=== PATIENT | female | born 1995 | race African-American/Black ===

== ENCOUNTER 2018-09-18 17:06 | Emergency (ER) | payer OTHER, SELFPAY ==
[2018-09-18 17:13] VITALS: BP 127/81; PULSE 68; RESP 15; TEMP 36.3; O2SAT 100
[2018-09-18 19:33] LABS: RBC Urine 1-5/HPF (0-5/HPF)
[2018-09-18 19:34] LABS: Amorphous Sediment Urine 1+; Bacteria Urine Moderate (10-30); Culture Indicated Urine Specimen Cultured; Mucus Urine 1+ (Negative); Squamous Epithelial Cell Urine 1-5 /HPF; WBC Urine >100/HPF (0-5/HPF)
--- NOTE | 2018-09-18 20:48 | ED.FEMALEGU ---
HPI - Female Genitourinary <COMPA Rose - Last Filed: 09/18/18 20:59> General Chief complaint: Urogenital-Female Stated complaint: UTI Source: patient Mode of arrival: ambulatory Limitations: no limitations History of Present Illness HPI Narrative: Patient is a healthy 23-year-old female who presents with chief complaint of I have a UTI. she complains of dysuria urgency and frequency and back pain. She denies any nausea vomiting or fever. She does complain of diarrhea, but states that started when she started eating a lot of [employer] a few days ago. She states that she has a history of UTI and this feels exactly like the previous one. She denies opportunity for . She denies any vaginal etiology or abdominal pain. Related Data Previous Rx's Medication Instructions Recorded nitrofurantoin monohyd/m-cryst 100 mg PO BID #10 cap 09/18/18 Allergies Allergy/AdvReac Type Severity Reaction Status Date / Time No Known Drug Allergies Allergy Verified 09/18/18 17:13 Review of Systems <REGIS Rose - Last Filed: 09/18/18 20:59> Review of Systems GENERAL: Denies chills, fatigue, malaise, fever, sweats. HEENT: Denies sinus pain, ear pain, sore throat, difficulty swallowing, dizziness. RESPIRATORY: Denies dyspnea, cough, wheezing, hemoptysis, sputum. CARDIOVASCULAR: Denies chest pain, palpitations, orthopnea, edema, GASTROINTESTINAL: Denies nausea, vomiting, abdominal pain, diarrhea, constipation, melena. : See HPI MUSCULOSKELETAL: denies weakness, joint pain, or bony pain SKIN: Denies rash, skin lesions, or other NEUROLOGIC: Denies weakness, headache, numbness, change in speech, confusion, seizures, incoordination. PSYCHIATRIC: No concerning psychosocial issues. 12 point review of systems is negative except for those stated above Exam <REGIS Rose - Last Filed: 09/18/18 20:59> Narrative Exam Narrative: GENERAL: This is a well-nourished, well-developed patient, in no acute distress HEAD: Atraumatic. Normocephalic. No temporal or scalp tenderness. EYES: Pupils equal round and reactive. Extraocular motions intact. No scleral icterus. No injection or drainage. ENT: Nose without bleeding, purulent drainage or septal hematoma. Throat without erythema, tonsillar hypertrophy or exudate. Uvula midline. Airway patent. NECK: Trachea midline. No JVD or lymphadenopathy. Supple, nontender, no meningeal signs. CARDIOVASCULAR: Regular rate and rhythm without murmurs, gallops, or rubs. RESPIRATORY: Clear to auscultation. Breath sounds equal bilaterally. No wheezes, rales, or rhonchi. GASTROINTESTINAL: Abdomen soft, non-tender, nondistended. No hepato-splenomegaly, or palpable masses. No guarding. Active bowel sounds all 4 quadrants. EXTREMITIES: No clubbing, cyanosis, or edema. No joint tenderness, effusion, or edema noted. BACK: Nontender without deformity or crepitance. No flank tenderness. no CVA tenderness bilaterally. NEURO: AOx3. SKIN: No rash or erythema. Initial Vital Signs Initial Vital Signs: Vital Signs Temperature 97.4 F L 09/18/18 17:13 Pulse Rate 68 09/18/18 17:13 Respiratory Rate 15 09/18/18 17:13 Blood Pressure 127/81 09/18/18 17:13 Pulse Oximetry 100 09/18/18 17:13 <Kvng Pulido DO - Last Filed: 09/18/18 22:59> Initial Vital Signs Initial Vital Signs: Vital Signs Temperature 97.4 F L 09/18/18 17:13 Pulse Rate 68 09/18/18 17:13 Respiratory Rate 15 09/18/18 17:13 Blood Pressure 127/81 09/18/18 17:13 Pulse Oximetry 100 09/18/18 17:13 Course <COMPA Rose - Last Filed: 09/18/18 20:59> Orders Ordered: ED Orders 09/18/18 17:13 Urine Culture Stat Urine Microscopic Stat Discontinued Medications Nitrofurantoin Macrocrystals (Macrobid 100 Mg Capsule) 100 mg PO NOW ONE Stop: 09/18/18 20:53 Last Admin: 09/18/18 21:04 Dose: 100 mg Vital Signs - 8 hr 09/18/18 17:13 Temperature 97.4 F L Pulse Rate 68 Respiratory Rate 15 Blood Pressure 127/81 Pulse Oximetry 100 <DO Abi Glover Last Filed: 09/18/18 22:59> Orders Ordered: ED Orders 09/18/18 17:13 Urine Culture Stat Urine Microscopic Stat Discontinued Medications Nitrofurantoin Macrocrystals (Macrobid 100 Mg Capsule) 100 mg PO NOW ONE Stop: 09/18/18 20:53 Last Admin: 09/18/18 21:04 Dose: 100 mg Vital Signs - 8 hr 09/18/18 17:13 Temperature 97.4 F L Pulse Rate 68 Respiratory Rate 15 Blood Pressure 127/81 Pulse Oximetry 100 MDM - Female Genitourinary <LITA Rose-BC - Last Filed: 09/18/18 20:59> Lab Data Lab Results 09/18/18 Range/Units 17:13 Urine RBC 1-5/hpf (0-5/HPF) Urine WBC >100/hpf H (0-5/HPF) Ur Squamous Epith Cells 1-5 /hpf Amorphous Sediment 1+ Urine Bacteria Moderate (10-30) H (None) Urine Mucus 1+ H (Negative) Ur Culture Indicated? Specimen cultured Micro UA Comment Not Reportable Point of Care Testing Test Results Negative Urine Dip Bedside Urine Glucose Negative Bedside Urine Bilirubin - Negative Bedside Urine Ketone - Negative Urine Specific [place] 1.015 Bedside Urine Occult Blood ++ Bedside Urine pH 7.5 Bedside Urine Protein + 30 Bedside Urine Urobilinogen - Negative Bedside Urine Nitrite - Negative Bedside Urine Leukocytes +++ 500 Esterase MDM Narrative Medical decision making narrative: Patient is a healthy 23-year-old female who presents with UTI symptoms. She was found to have bacteria and leukocyte esterase on urinalysis. Thus I will initiate treatment for urinary tract infection. She was given 1st dose of Macrobid in the emergency department. I discussed fluids as well as return precautions of fever, flank pain, inability keep down fluids or acute concerns. Urine culture is pending. Patient was hemodynamically stable and nontoxic throughout her stay in the emergency department. <Kvng Pulido DO - Last Filed: 09/18/18 22:59> Lab Data Lab Results 09/18/18 Range/Units 17:13 Urine RBC 1-5/hpf (0-5/HPF) Urine WBC >100/hpf H (0-5/HPF) Ur Squamous Epith Cells 1-5 /hpf Amorphous Sediment 1+ Urine Bacteria Moderate (10-30) H (None) Urine Mucus 1+ H (Negative) Ur Culture Indicated? Specimen cultured Micro UA Comment Not Reportable Point of Care Testing Test Results Negative Urine Dip Bedside Urine Glucose Negative Bedside Urine Bilirubin - Negative Bedside Urine Ketone - Negative Urine Specific [place] 1.015 Bedside Urine Occult Blood ++ Bedside Urine pH 7.5 Bedside Urine Protein + 30 Bedside Urine Urobilinogen - Negative Bedside Urine Nitrite - Negative Bedside Urine Leukocytes +++ 500 Esterase Discharge Plan Departure Patient Disposition: Home Clinical Impression: Urinary tract infection Discharge Date/Time: 09/18/18 21:08 Interventions: ED Discharge Assessment Last Done: 09/18/18 21:07 Instructions: DI for Urinary Tract Infection (UTI) Activity Restrictions/Additional Instructions: I am starting you on an antibiotic for urinary tract infection. Please push fluids, you can also take [id number] azo for pain. Please monitor for fever, flank pain as well as inability keep down food or fluids. Please follow-up if any of these occur. Follow up with her primary care provider come back to the emergency department for urgent concerns. Prescriptions: New nitrofurantoin monohyd/m-cryst 100 mg capsule 100 mg PO BID Qty: 10 RF: 0 <Kvng Pulido DO - Last Filed: 09/18/18 22:59> [facility] Attending Radha Attestation: I was available for consultation during this patient's emergency department encounter
[2018-09-18] MEDS: NITROFURANTOIN ER 100 MG CAPSULE PO (21:04)
== END 2018-09-18 21:08 | disposition home or self-care (01) ==
PROVIDERS: Emergency Provider Nurse Practitioner Family
DX: N39.0 Urinary tract infection, site not specified (principal)
CPT/HCPCS: 81003; 81015; 81025; 87077; 87086; 87186; 99282; 99283